=== PATIENT | female | born 1950 | race Caucasian/White ===

== ENCOUNTER 2018-01-04 19:46 | Inpatient (IN) | payer BC, MEDICARE ==
[2018-01-04 20:44] LABS: Anisocytosis SLIGHT = 6-15 cells (100X) (0-5/hpf); Band 2 % (5-11); Hemoglobin 9.5 g/dL (12.0-16.0); Hypochromia SLIGHT = 6-15 cells (100X) (0-5/hpf); Lymphocytes 18 % (21-51); MDiff Complete? YES; Mean Corpuscular HGB CONC 30.9 g/dL (32.0-36.0); Mean Corpuscular Hemoglobin 21.3 pg (27.0-31.0); Mean Corpuscular Volume 68.9 fl (81.0-99.0); Mean Platelet Volume 6.8 fL (7.4-10.4); Microcytosis SLIGHT = 6-15 cells (100X) (0-5/hpf); Monocytes 6 % (0-10); Neutrophil 68 % (42-75); PLT Morphology Comment Appears Increased; Platelet Count 585 thou/uL (130-400); Polychromasia SLIGHT = 2-3 cells (100X) (0-2/hpf); RBC Distribution Width 19.9 % (11.5-14.5); Reactive Lymphocytes 5 % (0-10); Red Blood Cell (RBC) Count 4.43 mill/uL (4.20-5.40); Target Cells SLIGHT = 2-5 cells (100X) (0-1/hpf); Toxic Granulation SLIGHT; White Blood Cell (WBC) Count 22.5 thou/uL (4.8-10.8)
[2018-01-04 20:48] LABS: ALT (SGPT) 53 U/L (8-55); AST (SGOT) 245 U/L (5-34); Albumin 3.3 g/dL (3.4-4.8); Alkaline Phosphatase 525 U/L (40-150); Anion Gap 15 mmol/L (10-20); BUN (Urea Nitrogen) 16 mg/dL (9.8-20.1); Bilirubin, Total 1.6 mg/dL (0.2-1.2); Calc. Creatinine Clearance 0 mL/min (70-130); Carbon Dioxide 25 mmol/L (23-31); Chloride 93 mmol/L (98-107); Estimated GFR-MDRD 81; Globulin 4.8 g/dL (2.4-3.5); Glucose 169 mg/dL (80-115); Magnesium 2.1 mg/dL (1.6-2.6); Potassium 4.9 mmol/L (3.5-5.1); Protein, Total 8.1 g/dL (6.0-8.3); Sodium 128 mmol/L (136-145)
[2018-01-04 20:51] LABS: CKMB 0.7 ng/mL (0-6.6); Troponin I Less than 0.010 ng/mL (< 0.028)
[2018-01-04 20:54] LABS: Calcium 12.7 mg/dL (7.8-10.44)
[2018-01-04 21:24] LABS: Bilirubin Small (Negative); Blood, Urine Small (Negative); Clarity Cloudy (Clear); Glucose, Urine (Dipstick) Negative (Negative); Leukocyte Large (Negative); Nitrite Negative (Negative); Protein, Urine (Dipstick) 100 mg/dL (Neg-Trace); pH, Urine 5.5 (5.0-9.0)
[2018-01-04 21:27] LABS: Bacteria/HPF 2+ HPF (None Seen); Hyaline Casts/LPF 0-3 HYALINE CAST LPF (0-3 Hyaline); Squamous Epithelial 0-3 HPF (0-3)
--- NOTE | 2018-01-04 22:43 | CT ---
CT OF THE ABDOMEN AND PELVIS WITH IV CONTRAST: 01/04/18 INDICATION: History of UTI and increasing weakness. Loss of appetite. FINDINGS: There is a 3 cm mass within the right lower lobe. There are numerous hyperdense masses within the liver consistent with metastatic disease. There are numerous enlarged lymph nodes within the upper abdomen consistent with metastatic lymphaden opathy. One of the largest seen is within the portacaval region measuring 0.8 cm on image 33 of seri es 2. Kidneys, pancreas, adrenal glands and spleen appear within normal limits. There is a calcification in volving the blanco of the gallbladder suspicious for porcelain gallbladder. There is a large heterogeneous mass involving the central aspects of the uterus. There are numerous e nlarged lymph nodes seen within the retroperitoneum. There are enlarged lymph nodes within the pelvis . One of the largest seen adjacent to the right internal iliac vasculature on image 65 of series 2 me asuring 1.8 cm. The small and large bowel are of normal caliber. No suspicious osteolytic or osteoblastic lesion is seen. There is a bony hemangioma within L5. IMPRESSION: 1. Large heterogeneous but predominantly hypodense mass centered within the central uterus is alves spicious for either extensive uterine fibroid disease or possibly malignancy such as endometrial carc inoma or leiomyosarcoma. There is lymphadenopathy within the pelvis and retroperitoneal region suspic ious for malignant lymphadenopathy. The malignant lymphadenopathy extends up into the upper abdomen i nto the periportal and tessie hepatis regions. There is extensive metastatic disease of the liver with a large mass in the right lower lobe of the lung suspicious for pulmonary metastatic disease. 2. There is calcifications involving the gallbladder suspicious for porcelain gallbladder. 3. OB-MECHANICAL SERVICE REPRESENTATIVE and hematology consultation is recommended. POS: ANNAMARIA
[2018-01-05] MEDS ORDERED: Acetaminophen 325 MG TAB PO PRN (01:07)
[2018-01-05] MEDS ORDERED: Ondansetron ODT 4 MG TAB SL PRN (01:07)
[2018-01-05] MEDS ORDERED: Ondansetron HCl/PF 4 MG/2 ML Vial IVP PRN (01:07)
[2018-01-05] MEDS ORDERED: Ondansetron ODT 4 MG TAB PO PRN (03:37)
[2018-01-05] MEDS ORDERED: Labetalol HCl 100 MG/20 ML VIAL SLOW IVP PRN (03:41)
[2018-01-05] MEDS ORDERED: Sodium Chloride 0.9% 1,000 ML IV SCH (03:45)
[2018-01-05] MEDS: cefTRIAXone\\ROCEPHIN 1 GM in Syringe 10 ML IVPB SCH (04:10)
--- NOTE | 2018-01-05 04:28 | PDOC.FPRHP ---
- History of Present Illness Chief Complaint: weakness, n/v History of Present Illness: Patient is a 67yo F with no PMH presents with 2 week hx of generalized weakness and fatigue. She reports URI 2 weeks ago with cough, congestion, and fever that has since resolved, but did have isolated fever of unknown temp 2 days ago. She has associated N/V, but otherwise has no other sx. She is admitted to us from [facility] ER with a CTabdomen result that showed extensive metastatic disease in the liver and lung with unknown primary source. ED Course: Tylenol 650mg, Zofran 4mg, NS @ 250ml/hr - Allergies/Adverse Reactions Allergies Allergy/AdvReac Type Severity Reaction Status Date / Time No Known Drug Allergies Allergy Unverified 01/05/18 01:06 - Home Medications Medication Instructions Recorded Confirmed Type No Known [No Known] 01/05/18 01/05/18 History - History PMHx: none PSHx: csection x1 FHx: mother of colon cancer Social: denies tobacco, alcohol, and drug use - Review of Systems General: reports: fever/chills. denies: weight/appetite/sleep changes Eyes: denies: eye pain ENT: denies: nasal congestion, rhinorrhea Respiratory: reports: other (reports hard to speak because she feels so weak). denies: cough, congestion, shortness of breath Cardiovascular: denies: chest pain, palpitation, edema Gastrointestinal: reports: nausea, vomiting. denies: diarrhea, constipation, abdominal pain, GI bleeding Genitourinary: denies: incontinence, dysuria, polyuria Skin: denies: rashes, lesions Musculoskeletal: denies: pain, tenderness, stiffness, swelling Neurological: denies: numbness, syncope, seizure Psychological: denies: anxiety, depression - Vital signs BP: 170/72 HR: 109 RR: 16 Tmax: 97.4 Pox: 95% on RA Wt: 96kg - Physical Exam Constitutional: NAD, awake, alert and oriented, well developed HEENT: normocephalic and atraumatic, PERRLA, EOMI, no scleral icterus, grossly normal vision, grossly normal hearing, MMM Neck: supple, FROM, trachea midline, no LAD Heart: normal S1/S2, pulses present -Heart: tachycardic Lungs: CTAB, no respiratory distress, good air movement, no wheezing, no retractions Abdomen: bowel sounds present -Abdomen: mildly distended, firm abdomen in RUQ and LUQ Musculoskeletal: normal structure, normal tone Neurological: no focal deficit Skin: no rash/lesions Heme/Lymphatic: no unusual bruising or bleeding, no purpura, no petechia, no LAD Psychiatric: normal mood and affect FMR H&P: Results - Labs Result Diagrams: 01/04/18 20:22 01/05/18 04:08 Lab results: WBC 22.5 thou/uL (4.8-10.8) H 01/04/18 20:22 Hgb 9.5 g/dL (12.0-16.0) L 01/04/18 20:22 Hct 30.6 % (36.0-47.0) L 01/04/18 20:22 MCV 68.9 fl (81.0-99.0) L 01/04/18 20:22 Plt Count 585 thou/uL (130-400) H 01/04/18 20:22 Band Neuts % (Manual) 2 % (5-11) L 01/04/18 20:22 Sodium 128 mmol/L (136-145) L 01/04/18 20:22 Potassium 4.9 mmol/L (3.5-5.1) 01/04/18 20:22 Chloride 93 mmol/L (98-107) L 01/04/18 20:22 Carbon Dioxide 25 mmol/L (23-31) 01/04/18 20:22 BUN 16 mg/dL (9.8-20.1) 01/04/18 20:22 Creatinine 0.72 mg/dL (0.6-1.1) 01/04/18 20:22 Glucose 169 mg/dL (80-115) H 01/04/18 20:22 Calcium 12.7 mg/dL (7.8-10.44) H* 01/04/18 20:22 Total Bilirubin 1.6 mg/dL (0.2-1.2) H 01/04/18 20:22 AST 245 U/L (5-34) H 01/04/18 20:22 ALT 53 U/L (8-55) 01/04/18 20:22 Alkaline Phosphatase 525 U/L (40-150) H 01/04/18 20:22 CK-MB (CK-2) 0.7 ng/mL (0-6.6) 01/04/18 20:22 Serum Total Protein 8.1 g/dL (6.0-8.3) 01/04/18 20:22 Albumin 3.3 g/dL (3.4-4.8) L 01/04/18 20:22 Urine Ketones Negative mg/dL (Negative) 01/04/18 21:00 Urine Blood Small (Negative) H 01/04/18 21:00 Urine Nitrite Negative (Negative) 01/04/18 21:00 Ur Leukocyte Esterase Large (Negative) H 01/04/18 21:00 Urine RBC 7-10 HPF (0-3) H 01/04/18 21:00 Urine WBC 11-20 HPF (0-3) H 01/04/18 21:00 Ur Squamous Epith Cells 0-3 HPF (0-3) 01/04/18 21:00 Urine Bacteria 2+ HPF (None Seen) H 01/04/18 21:00 - EKG Interpretation EKG: Sinus Tachycardia - Radiology Interpretation CT scan - abdomen Status: image reviewed by me, report reviewed by me (Large heterogenous hypodense mass in the uterus with LAD in the pelvis and evidence of metastatic disease in the liver and lung. Also findings of calcific gallbladder, suspicious of porcelain gallbladder) FMR H&P: A/P - Problem List (1) Metastatic disease Current Visit: Yes Status: Acute Code(s): C79.9 - SECONDARY MALIGNANT NEOPLASM OF UNSPECIFIED SITE (2) Hypercalcemia Current Visit: Yes Status: Acute Code(s): E83.52 - HYPERCALCEMIA (3) Hyponatremia Current Visit: Yes Status: Acute Code(s): E87.1 - HYPO-OSMOLALITY AND HYPONATREMIA (4) Sepsis Current Visit: Yes Status: Acute Code(s): A41.9 - SEPSIS, UNSPECIFIED ORGANISM (5) UTI (urinary tract infection) Current Visit: Yes Status: Acute (6) Uterine mass Current Visit: Yes Status: Acute Code(s): N85.9 - NONINFLAMMATORY DISORDER OF UTERUS, UNSPECIFIED (7) Porcelain gallbladder Current Visit: Yes Status: Acute Code(s): K82.8 - OTHER SPECIFIED DISEASES OF GALLBLADDER (8) Microcytic anemia Current Visit: Yes Status: Acute Code(s): D50.9 - IRON DEFICIENCY ANEMIA, UNSPECIFIED - Plan Weakness 2/2 Hypercalcemia - Corrected is 13.3 - PTH to evaluate cause, but likely 2/2 neoplasm - NS @ 200ml/hr - Metastatic Disease with Unknown Primary Tumor - Porcelain Gallbladder and Uterine mass on CT - Consult Onc - transvaginal u/s pending Hyponatremia - SIADH vs Hypovolemic hyponatremia - Urine osms pending - NS @ 200mls/hr - trend CMP Sepsis 2/2 UTI - Patient tachycardic, elevated WBC to 22,000, and source of UTI - Urine cx and blood cx pending - LA pending - Rocephin Hyperbilirubinemia - 2/2 Liver masses - trend Elevated AST - 2/2 Liver masses - trend Elevated BP without diagnosis of HTN - likely 2/2 anxiety - monitor - Labetalol prn for SBP > 180 Microcytic Anemia - Iron studies pending - trend CBC Code Status: Full DVT PPx: Lovenox Disposition/LOS: Likely > 2 midnights. D/c home once electrolytes wnl and diagnosis made with oncology f/u and treatment plan in place. FMR H&P: Upper Level - Pertinent history Time Seen: 01/05/18 at 0148 PCP None. City call admission 67 year old white female who presented to the ED complaining of 2 weeks of progressive weakness after having a URI. She has had poor appetite, progressive weakness, and dehydration over the last 2 weeks. She has also been feeling bloated recently. She reports some continued nasal congestion and mild cough. She denies fever, chills, night sweats, headache, dizziness, rhinorrhea , chest pain, dyspnea, abdominal pain, nausea, vomiting, diarrhea, dysuria, polyuria, and joint pain. She was seen by Dr. Veloz in the [facility] ER. Dr. Veloz noticed abdominal distention without rigidity and ordered a CT which revealed numerous intra-abdominal lesions consistent with metastatic carcinoma. PMH None. Patient does not see a primary care physican. PSH x1 - Pertinent findings Physical Exam: General: NAD, AAOx4. Sitting comfortably in hospital bed. Eyes: EOMI, PERRL, nonicteric. Conjunctiva clear. ENT: Mucous membranes moist, oropharynx clear CV: RRR. No murmurs, rubs or gallops auscultated. Pulses full equal in all 4 extremities Respiratory: CTAB, no wheezing, rales, or rhonchi. Nonlabored Abdomen: Liver palpable and feels enlarged. No guarding or rebound. Nontender Extremities: No edema. Equal movements in all 4 extremities Skin: No rash or ulcer. No palpable Lesions Neuro: CN II XII grossly intact Psych: Mood and affect appropriate. Judgement and insight intact - Plan Date/Time: 01/05/18 [id number] I, Sajan Bush DO, have evaluated this patient and agree with findings/plan as outlined by market research intern resident. Pertinent changes/additions are listed here. A/P 67 year old white female presents with: 1) Metastatic carcinoma with unknown primary source - Admit to oncology. - Suspect cholangiocarcinoma vs uterine leiomyosarcoma. Consult oncology service in the morning. - Pelvic US to evaluate uterus - Not currently in any pain but will treat as needed. - Consider consulting gynecology and general surgery in the morning. 2) Sepsis 2/2 urinary tract infection - Septic based on tachycardia and white count. - Check lactate - Patient says she has had very little to drink, so volume depletion may be a contributing factor for tachycardia. - Will give antibiotics and iv fluids. - Could be the cause of the patients presenting symptoms. - Urine culture pending. Will get blood cultures. 3) Hypercalcemia - May also be the cause of patients presenting symptoms. - Level consistent with moderate hypercalcemia. - Will start with aggressive iv fluids and recheck. - If no improvement, will administer calcitonin. - Will check PTH. - Malignancy and/or bone metastases are the likely causative factors. - Consult oncology 4) Hyponatremia - Serum osmolality 271. Will check urine sodium and osmolality. - Possible causes include hypovolemia and SIADH caused by metastatic disease - May improve with iv fluids being used to treat #3 5) Elevated AST - Likely due to liver metastases 6) Hyperbilirubinemia - Likely caused by liver metastases 7) Microcytic anemia - Will get iron studies. No active source of bleeding. 8) Code Status - Full 9) DVT prophylaxis - Lovenox Attending Addendum - Attending Addendum Date/Time: 01/05/18 0571 I personally evaluated the patient and discussed the management with Dr. Fields/ Eleazar. I agree with the History, Examination, Assessment and Plan documented above with any addition or exceptions noted below. Patient here with weakness and imaging suggesting diffuse metastatic disease with unknown primary tumor, possibly biliary system but more likely pelvic in origin based on adenopathy. She has highly elevated calcium level and is symptomatic from that. She will be admitted, and we will obtain expert consultation with GUEST SERVICES MANAGER and Oncology, possibly General Surgery as well. Obtain tumor markers for baseline, TVUS, and CXR. Will continue IVF for hypercalcemia, and likely begin bisphosphonate therapy to help with hypercalcemia of malignancy. Labs suggestive of liver dysfunction likely 2/2 tumor burden in hepatic tissue.
[2018-01-05] MEDS: Sodium Chloride 0.9% 1,000 ML IV SCH ×4 (04:34→20:39)
[2018-01-05 04:55] LABS: ALT (SGPT) 47 U/L (8-55); AST (SGOT) 228 U/L (5-34); Alkaline Phosphatase 478 U/L (40-150); Anion Gap 11 mmol/L (10-20); BUN (Urea Nitrogen) 13 mg/dL (9.8-20.1); Bilirubin, Total 1.9 mg/dL (0.2-1.2); Calc. Creatinine Clearance 120 mL/min (70-130); Carbon Dioxide 27 mmol/L (23-31); Chloride 95 mmol/L (98-107); Estimated GFR-MDRD 86; Globulin 4.1 g/dL (2.4-3.5); Glucose 130 mg/dL (80-115); Protein, Total 7.1 g/dL (6.0-8.3); Sodium 128 mmol/L (136-145)
[2018-01-05 05:01] LABS: Calcium 12.3 mg/dL (7.8-10.44)
[2018-01-05 05:58] LABS: Iron 22 ug/dL (50-170); Iron Binding Capacity, Total 175 mcg/dL (265-497)
[2018-01-05 06:00] LABS: Sodium, Urine Less than 20 mmol/L (Not Available)
[2018-01-05] MEDS ORDERED: Calcitonin,Salmon,Synthetic 200 UNITS/ML SC SCH (06:15)
[2018-01-05 07:37] LABS: Osmolality, Urine 156 mOsm/kg (300-900)
[2018-01-05 08:58] LABS: Lactic Acid 2.6 mmol/L (0.5-2.2)
[2018-01-05] MEDS ORDERED: Prevnar 13-Val Conj/PF 0.5 ML SYRINGE IM ONE (09:00)
[2018-01-05] MEDS: Enoxaparin Sodium 40 MG/0.4 ML SYRINGE SC SCH (09:15)
[2018-01-05] MEDS ORDERED: Zoledronic Acid 4 MG in Sodium Chloride 0.9% 100 ML IVPB SCH (11:00)
[2018-01-05 13:09] LABS: Lactic Acid 2.9 mmol/L (0.5-2.2)
[2018-01-05 13:10] LABS: Anion Gap 11 mmol/L (10-20); BUN (Urea Nitrogen) 10 mg/dL (9.8-20.1); Calc. Creatinine Clearance 127 mL/min (70-130); Calcium 11.7 mg/dL (7.8-10.44); Carbon Dioxide 24 mmol/L (23-31); Chloride 97 mmol/L (98-107); Estimated GFR-MDRD Greater than 90; Glucose 172 mg/dL (80-115); Potassium 4.3 mmol/L (3.5-5.1); Sodium 128 mmol/L (136-145)
--- NOTE | 2018-01-05 14:15 | ULT ---
PELVIC ULTRASOUND: Date: 01-05-18 History: Uterine mass noted on CT exam. Comparison: CT abdomen/pelvis 01-04-18. FINDINGS: Multiple transabdominal and endovaginal sonographic images of the pelvis are obtained. The uterus is enlarged and lobulated in appearance measuring 12.6 cm x 6.2 cm x 8.3 cm. Uterus is heterogeneous in appearance with a large difficult to adequately measure increased echogenic mass, left aspect of the uterus, which appears to extend from the fundus to the lower uterine segment. This large mass measure s 7.5 cm x 5.9 cm x 5.4 cm. The ovaries are visualized on transabdominal imaging with the right ovary measuring 2.6 cm x 3.6 cm x 1.8 cm and the left ovary measures 2.6 cm x 2.9 cm x 1.6 cm. Doppler evaluation of the right ovary with spectral analysis and color flow evaluation does demonstra te arterial flow. Due to positioning of the left ovary, posteriorly transabdominal images, flow was d ifficult to illicit within the left ovary. No free fluid is seen in the pelvis. Large mass within the uterus also appears to extend into the region of the cervix. I am not sure if t his is one contiguous mass or second mass within the region of the cervix. Findings do correlate with appearance of the uterus on CT exam. IMPRESSION: 1. Enlargement of the uterus with large heterogeneous mass involving the majority of the left aspect of the uterus as well as mass in the region of the cervix. While the findings may be related to exten sive uterine fibroids, malignancy related to neoplastic process cannot be entirely excluded. BOX OFFICE CLERK c onsultation is recommended. POS: ANNAMARIA
--- NOTE | 2018-01-05 14:35 | RAD ---
TWO VIEWS CHEST: Date: 01-05-18 Comparison: None. History: Evaluate lung bases. FINDINGS: There is a round soft tissue density mass in the right upper lobe measuring 3.9 cm. There is a soft t issue mass density in the right lung base projecting posteriorly on the lateral exam measuring 3.7 cm . Full evaluation via chest CT advised. IMPRESSION: Two mass lesions are noted within the right lung, suspicious for bronchogenic carcinoma and/or metast atic disease. Full assessment via CT examination of the chest is suggested. POS: ANNAMARIA
[2018-01-05 18:11] LABS: Alpha-Fetoprotein,Tumor Marker Less than 2.0 ng/mL (0.89-8.78); Cancer Antigen - CA 125 371.7 U/mL (Less than 35)
--- NOTE | 2018-01-05 18:37 | CON ---
DATE OF CONSULTATION: 01/05/2018 REASON FOR CONSULTATION: Metastatic disease. HISTORY OF PRESENT ILLNESS: Ms. Mejia is a 67-year-old female who presents to the [facility] ER with complaints of weakness and fatigue starting a couple of weeks ago. She had an upper respiratory infection for which she has received antibiotics approximately 2 weeks and has been unable to recover from this. She was having some nausea, vomiting, but no abdominal pain. A CT of the abdomen was performed in the emergency room was reviewed by me shows an extensive hyperdense masses in the liver consistent with metastatic disease. There was lymphadenopathy in the abdomen. There was a 3-cm mass in the right lower lobe. She had a large heterogeneous mass in the uterus. She was admitted for further evaluation and workup. The patient has no medical history as she has not seen a physician in quite some time. She is stoic. Most of the history was obtained from her daughter and at bedside. They deny any significant weight loss. No change in appetite. She states that she has been complaining of fatigue for several months, but otherwise has been in her normal state of health. The patient has never had a colonoscopy. She has never had a mammogram. She denies any chest pain or shortness of breath. She denies any abdominal discomfort. No blood in her stool or urine. Her hemoglobin on admission was 9.5 and white count was elevated at 22.5. Her sodium was low at 128. She had an elevated calcium of 12.7. PAST MEDICAL HISTORY: None. PAST SURGICAL HISTORY: None. ALLERGIES: No known drug allergies. HOME MEDICATIONS: None. FAMILY HISTORY: Mother of colon cancer. SOCIAL HISTORY: , has 12 children. No alcohol, tobacco or illicit drug use. REVIEW OF SYSTEMS: Twelve point review of systems is negative except for noted in HPI. PHYSICAL EXAMINATION: VITAL SIGNS: Temperature is 97.4, pulse is 108, respiratory rate 24, BP is 159/ 70. She is 97% on room air. GENERAL: Well-developed, well-nourished female in no acute distress. HEENT: Normocephalic, atraumatic. Pupils are equal and reactive to light. NECK: Supple. CARDIOVASCULAR: Regular rate and rhythm. LUNGS: Clear. ABDOMEN: Distended. She has a palpable liver approximately 6 cm below the costophrenic angle. EXTREMITIES: There is no clubbing, cyanosis or edema. SKIN: No rash. HEMATOLOGIC: There is no petechia or purpura. NEUROLOGIC: Nonfocal. PSYCHIATRIC: The patient is alert and oriented and answering questions appropriately. PERTINENT LABORATORY AND X-RAYS: Current WBCs are 22.5, hemoglobin 9.5, hematocrit 30.6, platelet count is 585,000. She has got 68% neutrophils, 2% bands, 18% lymphocytes. Sodium is 128, potassium 4.3, chloride 97, CO2 is 24, BUN is 10, creatinine 0.59. Lactic acid is 2.9, calcium is 11.7. Iron is 22, TIBC is 175. Bilirubin is 1.9, AST is 228, ALT is 47, alkaline phosphatase is 478, serum total protein is 7.1, albumin 3.0, globulin 4.1, PTH is 18.1. CEA is 20. Radiology per HPI. ASSESSMENT: 1. Metastatic disease with extensive liver, lymph node, lung and uterine disease. 2. Hypercalcemia. DISCUSSION: The patient's hypercalcemia has been treated with both calcitonin and Zometa with improvement. She is receiving IV fluids. The patient and family are agreeable to a tissue biopsy for a final diagnosis. Tissue can be obtained from either the lung or a liver nodule. CEA is elevated and CA-125 is currently pending. Further treatment options will be based on these results. Thank you for the consult. KSENIA
[2018-01-06] MEDS: Sodium Chloride 0.9% 1,000 ML IV SCH ×4 (01:34→18:11)
[2018-01-06] MEDS: cefTRIAXone\\ROCEPHIN 1 GM in Syringe 10 ML IVPB SCH (03:59)
[2018-01-06 05:59] LABS: #Eosinphils 0.2 thou/uL (0.0-0.7); #Lymphocytes 2.4 thou/uL (1.20-3.40); #Monocytes 1.4 thou/uL (0.11-0.59); #Neutrophils 14.5 thou/uL (1.40-6.50); %Eosinophils 0.9 % (0.0-10.0); %Lymphocytes 12.9 % (21.0-51.0); %Monocytes 7.7 % (0.0-10.0); %Neutrophils 78.4 % (42.0-75.0); Hemoglobin 8.6 g/dL (12.0-16.0); Mean Corpuscular HGB CONC 30.3 g/dL (32.0-36.0); Mean Corpuscular Volume 72.4 fl (81.0-99.0); Mean Platelet Volume 7.5 fL (7.4-10.4); Platelet Count 528 thou/uL (130-400); RBC Distribution Width 20.2 % (11.5-14.5); White Blood Cell (WBC) Count 18.5 thou/uL (4.8-10.8)
[2018-01-06 06:01] LABS: Lactic Acid 2.7 mmol/L (0.5-2.2)
[2018-01-06 06:05] LABS: ALT (SGPT) 48 U/L (8-55); AST (SGOT) 215 U/L (5-34); Albumin 2.9 g/dL (3.4-4.8); Alkaline Phosphatase 455 U/L (40-150); Anion Gap 13 mmol/L (10-20); BUN (Urea Nitrogen) 9 mg/dL (9.8-20.1); Bilirubin, Total 1.8 mg/dL (0.2-1.2); Calc. Creatinine Clearance 125 mL/min (70-130); Calcium 10.6 mg/dL (7.8-10.44); Carbon Dioxide 21 mmol/L (23-31); Chloride 104 mmol/L (98-107); Estimated GFR-MDRD Greater than 90; Globulin 3.9 g/dL (2.4-3.5); Glucose 122 mg/dL (80-115); Potassium 4.3 mmol/L (3.5-5.1); Protein, Total 6.8 g/dL (6.0-8.3); Sodium 134 mmol/L (136-145)
[2018-01-06] MEDS: Enoxaparin Sodium 40 MG/0.4 ML SYRINGE SC SCH (07:21)
[2018-01-06 07:26] LABS: INR-International Normal Ratio 1.1; PTT 21.8 SEC (22.9-36.1); Prothrombin Time 14.8 SEC (12.0-14.7)
[2018-01-06] MEDS ORDERED: Lactated Ringer's 1,000 ML IV SCH (08:30)
--- NOTE | 2018-01-06 09:04 | PDOC.FM ---
- Subjective Subjective: CC: tired HPI: Patient has not gone for biopsy yet. Explained plan for today. Patient and family unsure if they will want to proceed with chemotherapy or go with palliative care. - Objective MAR Reviewed: Yes Vital Signs & Weight: Vital Signs (12 hours) Temp Pulse Resp BP Pulse Ox 01/06/18 07:34 98.4 F 101 H 24 H 149/66 H 97 01/06/18 07:28 98.4 F 101 H 24 H 97 01/05/18 23:22 97.7 F 97 16 146/66 H 97 Weight Admit Weight 87.997 kg Weight 89.046 kg I&O: 01/05/18 01/06/18 01/07/18 06:59 06:59 06:59 Intake Total 240 3040 Balance 240 3040 Result Diagrams: 01/06/18 05:22 01/06/18 05:21 <Marlon Nelson W - Last Filed: 01/06/18 09:02> - Objective Vital Signs & Weight: Vital Signs (12 hours) Temp Pulse Resp BP Pulse Ox 01/06/18 07:34 98.4 F 101 H 24 H 149/66 H 97 01/06/18 07:28 98.4 F 101 H 24 H 97 01/05/18 23:22 97.7 F 97 16 146/66 H 97 Weight Admit Weight 87.997 kg Weight 89.046 kg I&O: 01/05/18 01/06/18 01/07/18 06:59 06:59 06:59 Intake Total 240 3040 Balance 240 3040 Result Diagrams: 01/06/18 05:22 01/06/18 05:21 <Karthik Cruz - Last Filed: 01/06/18 10:49> Phys Exam - Physical Examination Constitutional: NAD HEENT: moist MMs, sclera anicteric Respiratory: no wheezing, clear to auscultation bilateral Cardiovascular: RRR 2/6 systolic murmur Gastrointestinal: soft, non-tender mild distention, liver edge firm. Musculoskeletal: no edema Neurological: non-focal, moves all 4 limbs Psychiatric: normal affect, A&O x 3 Skin: no rash, normal turgor <Marlon Nelson - Last Filed: 01/06/18 09:02> Dx/Plan (1) Metastatic disease Code(s): C79.9 - SECONDARY MALIGNANT NEOPLASM OF UNSPECIFIED SITE Status: Acute Plan: CEA and CA125 still elevated. Etiology unknown but likely uterine in origin - liver biopsy today by IR (2) Hypercalcemia Code(s): E83.52 - HYPERCALCEMIA Status: Acute Plan: s/p zoledronic acid. improving - decrease fluids to 100 mL/hr (3) UTI (urinary tract infection) Status: Acute QualifierTitle: Urinary tract infection type: acute cystitis Hematuria presence: with hematuria Qualified Code(s): N30.01 - Acute cystitis with hematuria Plan: rocephin day 2 - culture pending (4) Uterine mass Code(s): N85.9 - NONINFLAMMATORY DISORDER OF UTERUS, UNSPECIFIED Status: Acute Plan: liver biopsy pending. <Marlon Nelson - Last Filed: 01/06/18 09:02> (1) Metastatic disease Code(s): C79.9 - SECONDARY MALIGNANT NEOPLASM OF UNSPECIFIED SITE Status: Acute (2) Hypercalcemia Code(s): E83.52 - HYPERCALCEMIA Status: Acute (3) Hyponatremia Code(s): E87.1 - HYPO-OSMOLALITY AND HYPONATREMIA Status: Acute (4) Sepsis Code(s): A41.9 - SEPSIS, UNSPECIFIED ORGANISM Status: Acute (5) UTI (urinary tract infection) Status: Acute Qualifiers: Urinary tract infection type: acute cystitis Hematuria presence: with hematuria Qualified Code(s): N30.01 - Acute cystitis with hematuria (6) Uterine mass Code(s): N85.9 - NONINFLAMMATORY DISORDER OF UTERUS, UNSPECIFIED Status: Acute (7) Porcelain gallbladder Code(s): K82.8 - OTHER SPECIFIED DISEASES OF GALLBLADDER Status: Acute (8) Microcytic anemia Code(s): D50.9 - IRON DEFICIENCY ANEMIA, UNSPECIFIED Status: Acute <Karthik Cruz - Last Filed: 01/06/18 10:49> Attending Addendum - Attending Addendum Date/Time: 01/06/18 1047 I personally evaluated the patient and discussed the management with Dr. Nelson. I agree with the History, Examination, Assessment and Plan documented above with any addition or exceptions noted below. Patient feeling improved today. Continue with IV hydration as Calcium level normalizes. It is trending down s/p Calcitonin and Zometa. Will mildly cut down fluid rate today. Awaiting CT guided biopsy today to work towards tissue diagnosis. Appreciate Onc input on case. Tumor markers are slowly returning and are elevated as we would expect. Patient nearing safe point to discharge in next 1-2 days for further outpatient discussions about diagnosis and treatment. <Karthik Cruz - Last Filed: 01/06/18 10:49>
[2018-01-06] MEDS ORDERED: Fentanyl 100 MCG/2 ML VIAL ONE (12:48)
[2018-01-06] MEDS ORDERED: Sodium Bicarbonate 2.5 MEQ/5 ML VIAL ONE (12:48)
[2018-01-06] MEDS ORDERED: Midazolam HCl 2 mg/2 ml Vial ONE (12:48)
--- NOTE | 2018-01-06 14:34 | CT ---
CT GUIDED PERCUTANEOUS BIOPSY OF RIGHT HEPATIC LOBE: Date: 01-06-18 History: Metastatic liver disease. Technique: After informed consent was obtained, the patient was placed on the CT scan table in supine position. Limited noncontrasted CT images were obtained through the level of the liver with grid loc alizer in place. An area of was marked and meticulously prepped and draped in the usual sterile fashi on. Skin subcutaneous tissues were infiltrated with buffered 1% Lidocaine for local anesthesia. Small skin incision was made. 17 gauge guide needle was advanced followed by axial noncontrasted CT images . Needle was placed into the most peripheral aspect of the right hepatic lobe and position was confir med with three axial noncontrasted CT images. Needle tip was located at the level of the heterogeneit y and hypodense mass like area in the right hepatic lobe. A total of three 18 gauge core needle biops y specimens were obtained utilizing axial technique through the 17 gauge guide needle. Specimens were evaluated by pathology. The inter style was replaced and the needle was removed. Hemostatis was achi eved with direct pressure for 10 minutes. Post biopsy axial CT images demonstrate minimal fluid adjac ent to the biopsy site. The patient tolerated the procedure well and without immediate complication. Patient's vital signs remained stable during the procedure as well as post procedure. IMPRESSION: Technically successful biopsy of a right hepatic lobe lesion. Pathology results are pending. POS: ANNAMARIA
[2018-01-07] MEDS: cefTRIAXone\\ROCEPHIN 1 GM in Syringe 10 ML IVPB SCH (03:49)
[2018-01-07] MEDS: Sodium Chloride 0.9% 1,000 ML IV SCH (03:52)
[2018-01-07 05:38] LABS: #Eosinphils 0.2 thou/uL (0.0-0.7); #Lymphocytes 2.3 thou/uL (1.20-3.40); #Monocytes 1.5 thou/uL (0.11-0.59); #Neutrophils 12.9 thou/uL (1.40-6.50); %Basophils 0.1 % (0.0-1.0); %Eosinophils 1.3 % (0.0-10.0); %Lymphocytes 13.6 % (21.0-51.0); %Monocytes 8.6 % (0.0-10.0); %Neutrophils 76.4 % (42.0-75.0); Hemoglobin 7.7 g/dL (12.0-16.0); Mean Corpuscular Hemoglobin 21.8 pg (27.0-31.0); Mean Corpuscular Volume 72.5 fl (81.0-99.0); Mean Platelet Volume 7.4 fL (7.4-10.4); Platelet Count 481 thou/uL (130-400); RBC Distribution Width 20.4 % (11.5-14.5); Red Blood Cell (RBC) Count 3.55 mill/uL (4.20-5.40); White Blood Cell (WBC) Count 16.9 thou/uL (4.8-10.8)
[2018-01-07 05:45] LABS: ALT (SGPT) 64 U/L (8-55); AST (SGOT) 301 U/L (5-34); Albumin 2.8 g/dL (3.4-4.8); Alkaline Phosphatase 452 U/L (40-150); Anion Gap 13 mmol/L (10-20); BUN (Urea Nitrogen) 8 mg/dL (9.8-20.1); Bilirubin, Total 2.2 mg/dL (0.2-1.2); Calc. Creatinine Clearance 136 mL/min (70-130); Carbon Dioxide 20 mmol/L (23-31); Chloride 104 mmol/L (98-107); Estimated GFR-MDRD Greater than 90; Globulin 3.7 g/dL (2.4-3.5); Glucose 134 mg/dL (80-115); Potassium 4.3 mmol/L (3.5-5.1); Protein, Total 6.5 g/dL (6.0-8.3); Sodium 133 mmol/L (136-145)
--- NOTE | 2018-01-07 06:43 | PDOC.FM ---
- Subjective Subjective: CC: Tired. HPI: States she is tired from not eating yesterday. Multiple family members present at time of exam. Explained calcium trended down overnight and she could probably go home. Family concerned she may be too weak. Informed them team would have PT evaluate today. - Objective MAR Reviewed: Yes Vital Signs & Weight: Vital Signs (12 hours) Temp Pulse Resp BP BP Pulse Ox 01/07/18 03:49 99.5 F 104 H 20 146/68 H 96 01/06/18 23:56 98.3 F 72 16 102/53 L 93 L 01/06/18 20:00 98.3 F 72 16 144/63 H 97 Weight Admit Weight 87.997 kg Weight 89.3 kg I&O: 01/05/18 01/06/18 01/07/18 06:59 06:59 06:59 Intake Total 240 3040 Balance 240 3040 Result Diagrams: 01/07/18 05:11 01/07/18 05:11 <Marlon Nelson W - Last Filed: 01/07/18 08:54> - Objective Vital Signs & Weight: Vital Signs (12 hours) Temp Pulse Resp BP BP Pulse Ox 01/07/18 08:00 98 F 109 H 20 01/07/18 07:33 98 F 109 H 20 139/63 96 01/07/18 03:49 99.5 F 104 H 20 146/68 H 96 01/06/18 23:56 98.3 F 72 16 102/53 L 93 L Weight Admit Weight 87.997 kg Weight 89.3 kg I&O: 01/06/18 01/07/18 01/08/18 06:59 06:59 06:59 Intake Total 3040 Balance 3040 Result Diagrams: 01/07/18 05:11 01/07/18 05:11 <Karthik Cruz - Last Filed: 01/07/18 11:26> Phys Exam - Physical Examination Constitutional: NAD HEENT: moist MMs, sclera anicteric Respiratory: no wheezing, clear to auscultation bilateral Cardiovascular: RRR, no significant murmur Neurological: non-focal, moves all 4 limbs Psychiatric: normal affect, A&O x 3 <Marlon Nelson W - Last Filed: 01/07/18 08:54> Dx/Plan (1) Metastatic disease Code(s): C79.9 - SECONDARY MALIGNANT NEOPLASM OF UNSPECIFIED SITE Status: Acute Plan: CEA, CA19-9 and CA125 elevated. Etiology unknown but likely uterine in origin - Biopsy taken yesterday - Pathology pending at this time. Informed preliminary report will be ready early afternoon. (2) Hypercalcemia Code(s): E83.52 - HYPERCALCEMIA Status: Acute Plan: s/p zoledronic acid. improving - d/c fluids (3) UTI (urinary tract infection) Status: Acute QualifierTitle: Urinary tract infection type: acute cystitis Hematuria presence: with hematuria Qualified Code(s): N30.01 - Acute cystitis with hematuria Plan: rocephin day 3 - culture shows mixed skin jordan - will switch to keflex 500 mg BID at time of d/c (4) Uterine mass Code(s): N85.9 - NONINFLAMMATORY DISORDER OF UTERUS, UNSPECIFIED Status: Acute Plan: pathology pending. <Marlon Nelson - Last Filed: 01/07/18 08:54> (1) Metastatic disease Code(s): C79.9 - SECONDARY MALIGNANT NEOPLASM OF UNSPECIFIED SITE Status: Acute (2) Hypercalcemia Code(s): E83.52 - HYPERCALCEMIA Status: Acute (3) Hyponatremia Code(s): E87.1 - HYPO-OSMOLALITY AND HYPONATREMIA Status: Acute (4) Sepsis Code(s): A41.9 - SEPSIS, UNSPECIFIED ORGANISM Status: Acute (5) UTI (urinary tract infection) Status: Acute Qualifiers: Urinary tract infection type: acute cystitis Hematuria presence: with hematuria Qualified Code(s): N30.01 - Acute cystitis with hematuria (6) Uterine mass Code(s): N85.9 - NONINFLAMMATORY DISORDER OF UTERUS, UNSPECIFIED Status: Acute (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 Nelson. I agree with the History, Examination, Assessment and Plan documented above with any addition or exceptions noted below. Patient calcium back down into normal range s/p fluids, calcitonin, and zometa injection. 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 Will see if Onc has any further recs prior to discharge. If patient can ambulate and feels up to it, she can be discharged home today with outpatient follow up with Oncology. <Karthik Cruz - Last Filed: 01/07/18 11:26>
[2018-01-07 07:34] VITALS: BP 139/63; TEMP 98
[2018-01-07] MEDS: Enoxaparin Sodium 40 MG/0.4 ML SYRINGE SC SCH (08:57)
[2018-01-07 12:16] VITALS: BMI 31.7
--- NOTE | 2018-01-08 01:42 | DIS-2 ---
DATE OF ADMISSION: 01/05/2018 DATE OF DISCHARGE: 01/07/2018 RESIDENT: Marlon Nelson M.D. ADMITTING ATTENDING: Karthik Cruz M.D. DISCHARGE ATTENDING: Karthik Cruz M.D. CONSULTATIONS: Renetta Marroquin, Family Nurse Practitioner, Hematology/Oncology. PROCEDURES: CT guided liver biopsy on 01/06/2018. IMAGIN. CT abdomen and pelvis with IV contrast revealed large heterogeneous, but hypodense mass centered within central uterus suspicious for intrauterine fibroid or possible malignancy, lymphadenopathy within the pelvis and retroperitoneal region suspicious for malignant lymphadenopathy. Malignant lymphadenopathy extending up into the upper abdomen of the periaortic and tessie hepatis regions, extensive metastatic disease in the liver with large mass in the right lower lobe of lung and suspicious for pulmonary metastatic disease. Calcifications involving the gallbladder suspicious for porcelain gallbladder. 2. Chest x-ray PA and lateral, two mass lesions noted in the right lung suspicious for bronchogenic carcinoma and/or metastatic disease. Recommend follow up with CT of the chest. 3. Transvaginal ultrasound, enlargement of the uterus with heterogeneous mass involving majority of the left aspect uterus as well as mass within the region of the cervix may be related to extensive uterine fibroids malignancy related to neoplastic processes cannot be entirely excluded. PERTINENT LABORATORY FINDINGS: Sodium at time of admission 128 trended to 133 at time of discharge. Calcium the time of admission 12.7, which corrected to approximately 13.5 trended to 10.0, which corrected to 11.0. Albumin 3.3, trended down to 2.8. PTH 18.1. CA 125 of 371.7. CA 19-9 of 321, CEA 20, tumor marker AFP less than 2, AST elevated to 301, ALT elevated to 64, alkaline phosphatase elevated at admission 525 trended down to 452. MICROBIOLOGY: Urinalysis showed mixed skin jordan. PRIMARY DIAGNOSES: 1. Poorly differentiated malignancy with squamous appearance on microscopy, but with negative tumor markers. 2. Adenocarcinoma of the colon and pancreas excluded. 3. Hypercalcemia of malignancy. 4. Anemia of chronic disease. 5. Hyponatremia, etiology unclear, hypotonic hyponatremia or hypovolemic hyponatremia versus syndrome of inappropriate antidiuretic hormone secondary to malignancy. SECONDARY DIAGNOSIS: None. DISCHARGE MEDICATIONS: Zofran 8 mg ODT q.6 hours p.r.n. DISCONTINUED MEDICATIONS: None. HISTORY OF PRESENT ILLNESS AND HOSPITAL COURSE: Ms. Mejia is a pleasant but unfortunate 67-year-old female with no past medical history but with no medical care in almost 30 years. She presents with 2-week history of generalized weakness and fatigue. She had upper respiratory tract type symptoms 2 weeks ago since resolved and an isolated subjective fever 2 days prior to admission. She also reported nausea and vomiting during this time. Upon initial evaluation in the ER, she was found to have a large firm liver on exam. Subsequent CT of the abdomen and pelvis showed concern for extensive metastatic disease with primary source unknown. She was admitted for marked hypercalcemia. She was started on normal saline and remained on normal saline for the majority of her hospitalization. She was also started on Rocephin for a presumed urinary tract infection. Day #1 of admission, she was given a dose of zoledronic acid to assist with calcium sequestration. Calcium trended down over the next few days. Hematology/Oncology was consulted and recommended either CT guided biopsy of the liver or lung. Interventional Radiology felt that it would be easier to biopsy of liver. This was performed on 01/06/2018. Final pathology report is still pending. 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 They stated that adenocarcinoma of the colon and pancreas could be ruled out, but the exact origin of her cancer is still to be determined. They recommended considering an endometrial biopsy to look for advanced invasive endometrial cancer or cervical cancer. Pelvic exam was not performed during this hospitalization. Day of discharge, the patient demonstrated that she could walk safely. She had multiple family members visit her throughout her hospitalization and has a fantastic support at home. It is felt that she could be safely discharged. Vital signs at time of discharge were stable. DISPOSITION: She was discharged home in stable condition. However, her long- term prognosis is guarded. DISCHARGE INSTRUCTIONS: 1. Location: Home. 2. Diet: Regular with Ensure supplementation. 3. Activity: As tolerated. 4. Followup: The patient is to follow up with Dr. Wilkins approximately 1 week to discuss with final pathology results and treatment options. Renetta Marroquin, nurse practitioner stated she would arrange this follow up. Forty minutes were spent counseling the patient and her family on the implications of her disease on the day of discharge. KSENIA
--- NOTE | 2018-01-11 14:15 | CT ---
CT GUIDED PERCUTANEOUS BIOPSY OF RIGHT HEPATIC LOBE: Date: 01-06-18 History: Metastatic liver disease. Technique: After informed consent was obtained, the patient was placed on the CT scan table in supine position. Limited noncontrasted CT images were obtained through the level of the liver with grid loc alizer in place. An area of was marked and meticulously prepped and draped in the usual sterile fashi on. Skin subcutaneous tissues were infiltrated with buffered 1% Lidocaine for local anesthesia. Small ski n incision was made. 17 gauge guide needle was advanced followed by axial noncontrasted CT images. Ne edle was placed into the most peripheral aspect of the right hepatic lobe and position was confirmed with three axial noncontrasted CT images. Needle tip was located at the level of the heterogeneity an d hypodense mass like area in the right hepatic lobe. A total of three 18 gauge core needle biopsy sp ecimens were obtained utilizing axial technique through the 17 gauge guide needle. Specimens were andrew luated by pathology. The inner stylet was replaced and the needle was removed. Hemostatis was achieve d with direct pressure for 10 minutes. Post biopsy axial CT images demonstrate minimal fluid adjacent to the biopsy site. The patient tolerated the procedure well and without immediate complication. Pat ient's vital signs remained stable during the procedure as well as post procedure. IMPRESSION: Technically successful biopsy of a right hepatic lobe lesion. Pathology results are pending.
== END 2018-01-07 16:13 | disposition home or self-care (01) | DRG 435 ==
LOC: SCSER 19:46 → ONC 23:26
PROVIDERS: ADMIT Family Medicine; ATTEND Family Medicine
PROC: 0FB13ZX Excision of Right Lobe Liver, Percutaneous Approach, Diagnostic (ICD-10-PCS; principal; 2018-01-06)
DX: C78.7 Secondary malignant neoplasm of liver and intrahepatic bile duct (principal); A41.9 Sepsis, unspecified organism; C78.01 Secondary malignant neoplasm of right lung; E83.52 Hypercalcemia; E87.1 Hypo-osmolality and hyponatremia; N39.0 Urinary tract infection, site not specified; K82.8 Other specified diseases of gallbladder; D50.9 Iron deficiency anemia, unspecified; N85.9 Noninflammatory disorder of uterus, unspecified
CPT/HCPCS: 36415; 47000; 71046; 74177; 76856; 77012; 80053; 81003; 81015; 82105; 82378; 82553; 82728; 83540; 83550; 83605; 83735; 83930; 83935; 83970; 84300; 84484; 85025; 85610; 85730; 86301; 86304; 87086; 88184; 88307; 88333; 88341; 88342; 90471; 90670; 93005; 96360; 96361; A4216; G0009; G8978-GP-CK; G8979-GP-CK; G8980-GP-CK; J0696; J1650; J2250; J3010; J3489; J7050

== ENCOUNTER 2018-01-13 12:08 | Day surgery (SDC) | payer BC ==
[2018-01-13] MEDS ORDERED: Acetaminophen 500 MG TAB PO SCH (12:45)
[2018-01-13] MEDS ORDERED: diphenhydrAMINE 25 MG CAP PO SCH (12:45)
[2018-01-13 17:23] LABS: Hemoglobin 8.7 g/dL (12.0-16.0)
[2018-01-13 20:51] VITALS: BP 147/75; TEMP 97.6
[2018-01-13 21:45] LABS: Anisocytosis SLIGHT = 6-15 cells (100X) (0-5/hpf); Band 6 % (5-11); Hemoglobin 9.4 g/dL (12.0-16.0); Hypochromia SLIGHT = 6-15 cells (100X) (0-5/hpf); Lymphocytes 11 % (21-51); MDiff Complete? YES; Mean Corpuscular HGB CONC 32.4 g/dL (32.0-36.0); Mean Corpuscular Hemoglobin 24.6 pg (27.0-31.0); Mean Corpuscular Volume 75.9 fl (81.0-99.0); Mean Platelet Volume 7.2 fL (7.4-10.4); Monocytes 7 % (0-10); Neutrophil 76 % (42-75); Nucleated RBC 2 % (0); Platelet Count 463 thou/uL (130-400); RBC Distribution Width 22.6 % (11.5-14.5); Red Blood Cell (RBC) Count 3.83 mill/uL (4.20-5.40); White Blood Cell (WBC) Count 29.7 thou/uL (4.8-10.8)
== END 2018-01-13 21:18 | disposition home or self-care (01) ==
LOC: ONC/OP 12:08 → ONC 12:13 → ONC/OP 21:18
PROVIDERS: ATTEND Internal Medicine Medical Oncology
PROC: 30233N1 Transfusion of Nonautologous Red Blood Cells into Peripheral Vein, Percutaneous Approach (ICD-10-PCS; principal; 2018-01-13)
DX: C80.1 Malignant (primary) neoplasm, unspecified (principal); C78.7 Secondary malignant neoplasm of liver and intrahepatic bile duct; C78.00 Secondary malignant neoplasm of unspecified lung; D63.0 Anemia in neoplastic disease; D69.6 Thrombocytopenia, unspecified
CPT/HCPCS: 36415; 36430; 80053; 82248; 82728; 83615; 84100; 84550; 85014; 85018; 86850; 86900; 86901; 87624; P9016